=== PATIENT | female | born 1955 | race African-American/Black ===

== ENCOUNTER 2024-08-13 08:33 | Outpatient (CLI) | payer MEDICARE ==
[2024-08-13] MEDS ORDERED: Iopamidol 370 76% 100 ML VIAL ONE (12:32)
== END 2024-08-13 08:34 | disposition home or self-care (01) ==
LOC: CT 08:33
PROVIDERS: ATTEND Internal Medicine Gastroenterology
DX: Z12.11 Encounter for screening for malignant neoplasm of colon (principal); R91.1 Solitary pulmonary nodule; J98.4 Other disorders of lung; R59.0 Localized enlarged lymph nodes; I25.10 Atherosclerotic heart disease of native coronary artery without angina pectoris
CPT/HCPCS: 36415; 71260; 74177; 82565; Q9967